=== PATIENT | male | born 1955 | race Caucasian/White ===

== ENCOUNTER 2016-10-01 09:32 | Emergency (ER) | payer BC, OTHER ==
--- NOTE | 2016-10-01 09:48 | ERNOTE ---
Medical Problem HPI - General Time Seen by Provider: 10/01/16 09:48 Source: patient Exam Limitations: no limitations - Immun/Allergies/Home Medications Allergies/Adverse Reactions: Allergies methylprednisolone [From Solu-Medrol] Allergy (Verified 10/01/16 10:04) prednisone Allergy (Verified 10/01/16 10:04) Home Medications: HOME MEDICATIONS Aspirin 325 mg PO DAILY 10/01/16 [Last Taken Unknown] Cephalexin Monohydrate [Keflex] 500 mg PO QID #40 cap 10/01/16 [Last Taken Unknown] Diphenhydramine HCl [Benadryl] 25 mg PO TID PRN #30 capsule 10/01/16 [Last Taken Unknown] Ibuprofen [Motrin] 800 mg PO TID PRN #30 tab 10/01/16 [Last Taken Unknown] Lisinopril [Zestril] 10 mg PO DAILY 10/01/16 [Last Taken Unknown] Simvastatin [Zocor] 40 mg PO DAILY 10/01/16 [Last Taken Unknown] - History of Present History Narrative: here for rash on body. Patient was exposed to poison oak recently he has an area on his right dorsal of the wrist and left volar aspect of wrist where the area is red and inflamed vesicular and has been actively scratched by the patient with several scalp visible. Immediately informs me that he is allergic to prednisone Solu-Medrol and any steroid-type pack. Vision states the allergy symptoms consist of his joints locking up to the point where he cannot move. Review of Systems - Review of Systems Constitutional: Present: no symptoms reported EYE: Present: no symptoms reported ENT: Present: no symptoms reported Respiratory: Present: no symptoms reported Cardiology: Present: no symptoms reported Gastrointestinal/Abdominal: Present: no symptoms reported Genitourinary: Present: no symptoms reported Musculoskeletal: Present: no symptoms reported Skin: Present: no symptoms reported - rash on both wrists Physical Exam - Physical Exam General Appearance: Present: wd/wn, alert, no apparent distress Respiratory: Present: no respiratory distress, normal breath sounds, no accessory muscle use, chest nontender, lungs clear Cardiovascular/Chest: Present: regular rate, rhythm, no murmur, normal peripheral pulses ED Progress - Vital Signs Patient's Vital Signs:: I have reviewed the patient's vital signs. Plan - Plan Plan: This patient clearly has poison oak on his wrists which have been scratched and are further irritated. Furthermore treatment of this patient is slightly challenging as he states that he is allergic to all steroid preps. As such this examiner which she was to treat the patient with high-dose Benadryl Keflex and ibuprofen. Patient is to follow-up with his primary care doctor tomorrow or the day after. Departure - Departure Clinical Impression: Poison oak dermatitis Disposition: Home self-care Condition: Good Instructions: Poison [place] Dermatitis, Poison [place] Dermatitis, [id number] Prescriptions: Cephalexin Monohydrate [Keflex] 500 mg PO QID #40 cap Diphenhydramine HCl [Benadryl] 25 mg PO TID PRN #30 capsule PRN Reason: Itching Ibuprofen [Motrin] 800 mg PO TID PRN #30 tab PRN Reason: Pain
[2016-10-01 09:56] VITALS: BP 157/76
[2016-10-01] MEDS ORDERED: diphenhydrAMINE HCL 50 MG/ML VIAL IM ONE (10:10)
[2016-10-01] MEDS ORDERED: diphenhydrAMINE HCL 50 MG/ML VIAL ONE (10:11)
== END 2016-10-01 10:17 | disposition home or self-care (01) ==
LOC: ER 09:32
DX: L23.7 Allergic contact dermatitis due to plants, except food (principal)

== ENCOUNTER 2018-03-24 07:16 | Observation (INO) ==
[2018-03-24 07:47] LABS: Hematocrit 45.5 % (42.0-52.0); Hemoglobin 14.9 gm/dL (13.5-18.0); Mean Cell Volume 89.9 fl (78-100); Mean Corpuscular Hemoglobin 29.4 pg (27-31); Mean Corpuscular Hgb Conc 32.7 g/dl (32-36); Mean Platelet Volume 9.2 fl (8-11.3); Neutrophil # 3.8 K/mm3 (1.3-6.0); Neutrophil % 66.7 % (42-75.0); Platelet Count 210 K/mm3 (150-450); Red Blood Count 5.06 M/mm3 (4.7-6.0); Red Cell Distribution Width 12.7 % (11.5-14.0); White Blood Count 5.7 K/mm3 (4.0-10.5)
--- NOTE | 2018-03-24 07:52 | ERNOTE ---
<Gibson Campos - Last Filed: 03/24/18 08:03> Chest Pain/Cardiac HPI Date of Service: 03/24/18 Chief Complaint: Chest Pain Time Seen by Provider: 03/24/18 07:47 Source: patient Immunizations: IMMUNIZATION HX Immunizations Up to Date Yes History of Influenza Vaccine No Hx Pneumococcal Vaccination No Allergies/Adverse Reactions: Allergies methylprednisolone [From Solu-Medrol] Allergy (Verified 03/24/18 07:27) prednisone Allergy (Verified 03/24/18 07:27) Home Medications: HOME MEDICATIONS Aspirin 325 mg PO DAILY 10/01/16 [Last Taken Unknown] Ibuprofen [Motrin] 800 mg PO TID PRN #30 tab 10/01/16 [Last Taken Unknown] lisinopril 10 mg tablet 10 mg PO DAILY #90 tab 03/14/18 [Last Taken Unknown] simvastatin 40 mg tablet 40 mg PO HS #90 tab 03/14/18 [Last Taken Unknown] tamsulosin 0.4 mg capsule 0.4 mg PO DAILY #90 cap 03/14/18 [Last Taken Unknown] Narrative: 62-year-old male woke up around 1230 1:00 this morning complaining of pain in his left chest Left parasternal region also a achiness in his left arm and his left neck axis has been occurring on and off for the last several weeks but not like tonight he does relate that while he was working up until 6 years ago he was having frequent stress test and they were all negative the last 1 approximately 6 or 7 years ago. He also states that he has had many broken bones including left parasternal rib area of shoulder problems so he does have significant musculoskeletal component is not painful to palpation cannot reproduce the pain pain right now is a 1 out of 10 Date (Duration): 03/22/18 Time (Timing): 01:30 Timing: resolved prior to arrival Severity/Quality: moderate Location: shoulder, left chest Chest Pain Radiation: arms, neck, shoulders Activities at Onset: rest Nitro Today/Relief: no nitro taken today Aspirin Treatment Today: 325 mg x 1 Associated Symptoms: Present: diaphoresis Prior Chest Pain/Cardiac Workup: Reports: prior chest pain Review of Systems - Review of Systems Constitutional: Present: weight loss, other - Is on the Atkins diet and was lost EYE: Present: no symptoms reported ENT: Present: no symptoms reported Respiratory: Present: no symptoms reported Cardiology: Present: chest pain Gastrointestinal/Abdominal: Present: no symptoms reported Musculoskeletal: Present: neck pain, other - Left rib pain shoulder Skin: Present: no symptoms reported Neurological: Present: no symptoms reported Hematologic/Lymphatic: Present: no symptoms reported Psych: Present: no symptoms reported Medical History (Last Reviewed 03/24/18 @ 07:45 by Fahad Contreras RN) Diabetes mellitus type 2, controlled Onset Date: 11/26/12 Essential hypertension Onset Date: 11/13/13 Hyperlipidemia Onset Date: 11/13/13 Hypertension Onset Date: Unknown Surgical History: Surgical History (Last Reviewed 03/24/18 @ 07:45 by Fahad Contreras RN) H/O colonoscopy with polypectomy Onset Date: 07/25/07 Dr. Acuña Polyp @ 15cm, polyp @ 20cm, & cecum polyp. All benign. Family History: Family History (Last Reviewed 03/24/18 @ 07:45 by Fahad Contreras RN) Aunt Diabetes Father CVA (cerebral vascular accident) Myocardial infarction Alzheimers disease Social History: Preferred Language Luxembourgish Do you have any lutheran or No cultural preference? Smoking Status Former smoker Have you smoked in the past 12 No months Do you dip or chew tobacco No Abuse History No History of abuse Psych History No pertinent hx Alcohol Use none Drug Use none (Last Updated 09/25/17 @ 16:46 by JEFF Delgado) No Social History Section defined Physical Exam - Physical Exam General Appearance: Present: wd/wn, alert, no apparent distress Head Exam: Present: normal inspection Eye Exam: Normal inspection: bilateral, PERRL: bilateral, EOMI: bilateral Ears, Nose, Throat: Present: normal ENT inspection Neck: Present: normal inspection Respiratory: Present: no respiratory distress Cardiovascular/Chest: Present: regular rate, rhythm Peripheral Pulses: N=norm/S=strong/W=weak/B=bound/A=absent: Carotid (R): Normal, Carotid (L): Normal Gastrointestinal/Abdominal: Present: normal bowel sounds, nontender Back Exam: Present: normal inspection, normal range of motion Extremity Exam: Present: normal inspection Neurological Exam: Present: alert, oriented Progress - Vital Signs Vital Signs: Vital Signs 03/24/18 07:22 03/24/18 07:45 Temperature 36.5 C Pulse Rate 64 64 Respiratory Rate 10 L Blood Pressure 142/79 O2 Sat by Pulse Oximetry 97 - Progress/Reassessment Chief Complaint: Chest Pain Progress:: Improved - Transfer of Care Physician Sign Out: Gibson Campos Brief History: Chest pain began about 1230 1:30 AM Receiving Physician: Naomy Gibson Pending Results: Labs, X-ray results Expected Disposition: Discharge Departure Clinical Impression: Chest pain Qualifiers: Chest pain type: precordial pain Qualified Code(s): R07.2 - Precordial pain - Departure Disposition: Still a patient Condition: Stable <Naomy Gibson - Last Filed: 03/24/18 08:52> Chest Pain/Cardiac HPI Source: patient Exam Limitations: no limitations Immunizations: IMMUNIZATION HX Immunizations Up to Date Yes History of Influenza Vaccine No Hx Pneumococcal Vaccination No Medical History (Last Reviewed 03/24/18 @ 08:37 by Naomy Gibson MD) Diabetes mellitus type 2, controlled Onset Date: 11/26/12 Essential hypertension Onset Date: 11/13/13 Hyperlipidemia Onset Date: 11/13/13 Hypertension Onset Date: Unknown Surgical History: Surgical History (Last Reviewed 03/24/18 @ 07:45 by Fahad Contreras RN) H/O colonoscopy with polypectomy Onset Date: 07/25/07 Dr. Acuña Polyp @ 15cm, polyp @ 20cm, & cecum polyp. All benign. Family History: Family History (Last Reviewed 03/24/18 @ 07:45 by Fahad Contreras RN) Aunt Diabetes Father CVA (cerebral vascular accident) Myocardial infarction Alzheimers disease Social History: Preferred Language Luxembourgish Do you have any lutheran or No cultural preference? Smoking Status Former smoker Have you smoked in the past 12 No months Do you dip or chew tobacco No Abuse History No History of abuse Psych History No pertinent hx Alcohol Use none Drug Use none (Last Updated 09/25/17 @ 16:46 by JEFF Delgado) No Social History Section defined Physical Exam - Physical Exam General Appearance: Present: wd/wn, alert, no apparent distress Respiratory: Present: no respiratory distress Neurological Exam: Present: alert, oriented, normal mood/affect Skin Exam: Present: normal color, warm/dry Progress - Results and Orders Patient's Lab Results:: I have reviewed the patient's lab results. - Vital Signs Patient's Vital Signs:: I have reviewed the patient's vital signs. Vital Signs: Vital Signs 03/24/18 07:22 03/24/18 07:45 03/24/18 08:10 Temperature 36.5 C Pulse Rate 64 64 60 Respiratory Rate 10 L 11 L Blood Pressure 142/79 142/77 O2 Sat by Pulse Oximetry 97 98 - X-Ray X-Ray #1 X-Ray: chest - borderline heart size, no acute changes Interpretation: Interp. by me - Progress/Reassessment Progress Note-Subjective: 03/24/18 08:25 discussed test results with patient and family and limitations of test to rule out CAD Patient has had intermittent chest pain every few days for about three weeks, no clear aggravation with activity. He has been able to walk without pain episodes, but did get pain while shoveling snow a few days ago. Last night was the first time the pain woke him up at night (once right after midnight and then again at 03:00, associated with diaphoresis) He denies any pain currently, offered admission as patient has significant risk factors 03/24/18 08:29 discussed with ayo Regan to admit for observation for chest pain
[2018-03-24 07:55] LABS: Prothrombin Time (Patient) 9.6 Seconds (9.0-11.0)
[2018-03-24 07:57] LABS: INR 0.96 INR (0.90-1.10); Partial Thrombolplastin Time 23.1 Seconds (24-32)
[2018-03-24 08:04] LABS: ALT 24 U/L (19-67); AST 15 U/L (0-48); Albumin * 3.9 gm/dl (3.4-5.0); Alkaline Phosphatase * 64 U/L (50-170); Anion Gap 16.2 mmol/L (6.8-13.8); BUN/Creatinine Ratio 26.4 (9.0-21.6); Bilirubin, Total 0.3 mg/dL (0.0-1.1); Blood Urea Nitrogen 24 mg/dL (6-23); Ca. Corrected For Albumin 9.1 mg/dL (8.4-10.2); Calcium * 9.3 mg/dL (7.9-10.9); Carbon Dioxide 23.2 mmol/L (24-32.6); Chloride 104 mmol/L (97-106); Glucose * 164 mg/dL (70-110); Potassium 4.4 mmol/L (3.4-4.6); Sodium 139 mmol/L (132-142); Total Protein 7.6 gm/dL (6.2-8.2)
[2018-03-24 08:09] LABS: Troponin I Less than 0.017 ng/mL (0.00-0.10)
[2018-03-24 08:15] LABS: Urine Appearance Clear (CLEAR); Urine Bilirubin Negative (NEGATIVE); Urine Color Yellow
[2018-03-24 08:16] LABS: Urine Bacteria None Seen; Urine Blood Negative /ul (NEGATIVE); Urine Ketone Negative (NEGATIVE); Urine Nitrite Negative (NEGATIVE); Urine Protein Negative (NEGATIVE); Urine RBC None Seen /hpf (0-5); Urine Specific Gravity 1.015 SP.GR. (1.005-1.030); Urine Urobilinogen Normal (NORMAL); Urine WBC None Seen /hpf (0-5)
--- NOTE | 2018-03-24 11:30 | HP ---
Chief Complaint - Chief Complaint Date of Service: 03/24/18 Time of Service: 13:46 Chief Complaint: Chest pain History of Present Illness: 62-year-old male presented to the ER early this morning after he was awoken from chest pain that radiated into his left shoulder and jaw. Patient states that he was diaphoretic as well. He denied nausea vomiting, denied vision changes, headache, or swelling in his lower extremities. Patient states that a similar episode like this happen to him roughly 3 weeks prior which was concerning and so he came to the ER for evaluation. While in the ER his labs that were drawn were fairly benignCBC within acceptable range, coag panel within an acceptable range, chemistry panel mostly normal aside from elevated glucose at 164 (patient has history of diabetes which he states he is normally well controlled on). First troponin level was negative and the EKG was normal sinus rhythm with no obvious ST depression or elevations. Patient placed in observation for follow-up troponin levels and repeat EKG. currently patient denies chest pain, nausea/vomiting, diaphoresis, or lower extremity swelling. Patient states he is ready to go home. Patient has a history of diabetes, hypertension, hyperlipidemia. He also has significant family history for cardiac disease. Medical History (Last Updated 03/24/18 @ 09:21 by Daisy Alfaro RN) Diabetes mellitus type 2, controlled Onset Date: 11/26/12 Essential hypertension Onset Date: 11/13/13 Hyperlipidemia Onset Date: 11/13/13 Hypertension Onset Date: Unknown Surgical History: Surgical History (Last Updated 03/24/18 @ 09:22 by Daisy Alfaro RN) ADENOIDS REMOVED Tonsillectomy planned H/O colonoscopy with polypectomy Onset Date: 07/25/07 Dr. Acuña Polyp @ 15cm, polyp @ 20cm, & cecum polyp. All benign. Family History: Family History (Last Updated 03/24/18 @ 09:22 by Daisy Alfaro RN) Aunt Diabetes Father Alzheimers disease Myocardial infarction CVA (cerebral vascular accident) Mother Aortic aneurysm Social History: Patient Lives/Resources Home Utilized Preferred Language Romansh Do you have any islam or No cultural preference? Smoking Status Former smoker Have you smoked in the past 12 No months Do you dip or chew tobacco No Abuse History No History of abuse Psych History No pertinent hx Alcohol Use none Drug Use none (Last Updated 07/31/18 @ 16:46 by JEFF Delgado) No Social History Section defined Review Of Systems (GEN) - Review of Systems Generalized/Overall Review: Present: No Symptoms Reported EENTM: Present: No Symptoms Reported Respiratory: Absent: Cough, Shortness of Breath Cardiac: Present: Chest Pain - Resolved. Absent: Edema, Palpitations Abdominal: Absent: Nausea, Vomiting Genitourinary: Present: No Symptoms Reported Musculoskeletal: Present: Muscle Pain - Left chest wall, left paraspinal muscle pain Neurological: Present: No Symptoms Reported Skin: Present: No Symptoms Reported Endocrine: Absent: Increased Thirst Immunizations: IMMUNIZATION HX Immunizations Up to Date Yes History of Influenza Vaccine No Hx Pneumococcal Vaccination No Allergies/Adverse Reactions: Allergies Allergy/AdvReac Type Severity Reaction Status Date / Time methylprednisolone Allergy Verified 03/24/18 09:22 [From Solu-Medrol] prednisone Allergy Verified 03/24/18 09:22 Home Medications: HOME MEDICATIONS Aspirin 325 mg PO DAILY 10/01/16 [Last Taken Unknown] lisinopril 10 mg tablet 10 mg PO DAILY #90 tab 03/14/18 [Last Taken Unknown] tamsulosin 0.4 mg capsule 0.4 mg PO DAILY #90 cap 03/14/18 [Last Taken Unknown] Multivitamin [Multivitamins] 1 ea PO DAILY 03/24/18 [Last Taken Unknown] Simvastatin [Zocor] 40 mg PO DAILY 03/24/18 [Last Taken Unknown] Exam - Exam Vital Signs: Vital Signs - Last Taken Temp 36.7 C 03/24/18 09:25 Pulse 62 03/24/18 09:25 Resp 20 03/24/18 09:25 BP 132/73 03/24/18 09:25 Pulse Ox 94 03/24/18 09:25 Constitutional: Present: Alert, Oriented x3, Cooperative, Obese Eye Exam: bilateral eye: normal inspection, EOMI Neck: Present: full range of motion. Absent: non-tender - Mild left-sided paraspinal tenderness with palpation, stiff neck, tender midline Respiratory: Present: lungs clear, normal breath sounds. Absent: chest non- tender - Mild left upper chest wall tenderness with palpation Cardiovascular/Chest: Present: normal peripheral pulses, regular rate, rhythm Peripheral Pulses: dorsalis-pedis (R): 2+, dorsalis-pedis (L): 2+ Abdomen: Present: Normal bowel sounds, soft, nontender /Rectal: Present: Exam deferred Extremity: Absent: lower extremity edema Skin Exam: Present: normal color, warm/dry Appearance: Present: appropriate appearance, appropriate insight Eye contact: Present: cooperative, good eye contact Thoughts: Present: normal thought pattern, normal mood /affect Diagnostic Studies: Abnormal Lab Results 03/24/18 03/24/18 03/24/18 Range/Units 07:37 07:37 07:37 Immature Gran % (Auto) 0.70 H (0.001-0.429) % Immature Gran # (Auto) 0.04 H (0.000-0.0310) K/mm3 Lymphocytes # 1.23 L (1.5-3.5) k/mm3 PTT ([place]) 23.1 L (24-32) Seconds Carbon Dioxide 23.2 L (24-32.6) mmol/L Anion Gap 16.2 H (6.8-13.8) mmol/L BUN 24 H (6-23) mg/dL BUN/Creatinine Ratio 26.4 H (9.0-21.6) Random Glucose 164 H (70-110) mg/dL Laboratory Results WBC 5.7 K/mm3 (4.0-10.5) 03/24/18 07:37 RBC 5.06 M/mm3 (4.7-6.0) 03/24/18 07:37 Hgb 14.9 gm/dL (13.5-18.0) 03/24/18 07:37 Hct 45.5 % (42.0-52.0) 03/24/18 07:37 MCV 89.9 fl (78-100) 03/24/18 07:37 MCH 29.4 pg (27-31) 03/24/18 07:37 MCHC 32.7 g/dl (32-36) 03/24/18 07:37 RDW 12.7 % (11.5-14.0) 03/24/18 07:37 Plt Count 210 K/mm3 (150-450) 03/24/18 07:37 MPV 9.2 fl (8-11.3) 03/24/18 07:37 Immature Gran % (Auto) 0.70 % (0.001-0.429) H 03/24/18 07:37 Immature Gran # (Auto) 0.04 K/mm3 (0.000-0.0310) H 03/24/18 07:37 Neutrophils % 66.7 % (42-75.0) 03/24/18 07:37 Lymphocytes % 21.7 % (20-51) 03/24/18 07:37 Monocytes % 8.8 % (0.0-9) 03/24/18 07:37 Eosinophils % 1.6 % (0.0-3.0) 03/24/18 07:37 Basophils % 0.5 % (0.0-1.0) 03/24/18 07:37 Nucleated RBC % 0.0 k/mm3 (0-1) 03/24/18 07:37 Neutrophils # 3.8 K/mm3 (1.3-6.0) 03/24/18 07:37 Lymphocytes # 1.23 k/mm3 (1.5-3.5) L 03/24/18 07:37 Monocytes # 0.5 k/mm3 (0.0-1.0) 03/24/18 07:37 Eosinophils # 0.1 k/mm3 (0.0-0.7) 03/24/18 07:37 Absolute Basophils 0.0 k/mm3 (0.0-0.1) 03/24/18 07:37 PT 9.6 Seconds (9.0-11.0) 03/24/18 07:37 INR (Anticoag Therapy) 0.96 INR (0.90-1.10) 03/24/18 07:37 PTT ([place]) 23.1 Seconds (24-32) L 03/24/18 07:37 Sodium 139 mmol/L (132-142) 03/24/18 07:37 Plasma Sodium 140 mmol/L (130-142) 03/24/18 07:37 Potassium 4.4 mmol/L (3.4-4.6) 03/24/18 07:37 Chloride 104 mmol/L (97-106) 03/24/18 07:37 Carbon Dioxide 23.2 mmol/L (24-32.6) L 03/24/18 07:37 Anion Gap 16.2 mmol/L (6.8-13.8) H 03/24/18 07:37 BUN 24 mg/dL (6-23) H 03/24/18 07:37 Creatinine 0.91 mg/dL (0.4-1.4) 03/24/18 07:37 Est GFR (Non-Af Amer) 89 mL/min (60-130) 03/24/18 07:37 BUN/Creatinine Ratio 26.4 (9.0-21.6) H 03/24/18 07:37 Random Glucose 164 mg/dL (70-110) H 03/24/18 07:37 Calcium 9.3 mg/dL (7.9-10.9) 03/24/18 07:37 Calcium Adj for Albumin 9.1 mg/dL (8.4-10.2) 03/24/18 07:37 Total Bilirubin 0.3 mg/dL (0.0-1.1) 03/24/18 07:37 AST 15 U/L (0-48) 03/24/18 07:37 ALT 24 U/L (19-67) 03/24/18 07:37 Alkaline Phosphatase 64 U/L (50-170) 03/24/18 07:37 Troponin I Less than 0.017 ng/mL (0.00-0.10) 03/24/18 07:37 Total Protein 7.6 gm/dL (6.2-8.2) 03/24/18 07:37 Albumin 3.9 gm/dl (3.4-5.0) 03/24/18 07:37 Urine Color Yellow 03/24/18 07:45 Urine Appearance Clear (CLEAR) 03/24/18 07:45 Urine pH 6.0 pH (5.0-7.0) 03/24/18 07:45 Ur Specific [place] 1.015 SP.GR. (1.005-1.030) 03/24/18 07:45 Urine Protein Negative mg/dL (NEGATIVE) 03/24/18 07:45 Urine Glucose (UA) Negative mg/dL (NEGATIVE) 03/24/18 07:45 Urine Ketones Negative mg/dL (NEGATIVE) 03/24/18 07:45 Urine Blood Negative /ul (NEGATIVE) 03/24/18 07:45 Urine Nitrate Negative (NEGATIVE) 03/24/18 07:45 Urine Bilirubin Negative mg/dl (NEGATIVE) 03/24/18 07:45 Urine Urobilinogen Normal EU/dl (NORMAL) 03/24/18 07:45 Ur Leukocyte Esterase Negative /ul (NEGATIVE) 03/24/18 07:45 Urine RBC None seen /hpf (0-5) 03/24/18 07:45 Urine WBC None seen /hpf (0-5) 03/24/18 07:45 Ur Epithelial Cells None seen /hpf (0-5) 03/24/18 07:45 Urine Bacteria None seen (NONE) 03/24/18 07:45 Urine Culture Comments No culture indicated 03/24/18 07:45 Assessment/Plan - Narrative Narrative: Since being placed in observation, patient has been asymptomatic and feeling well. Asked if he could go home when I had first into the room. His vital signs been stable and has been afebrile. Discussed his blood work including cardiac workup which has been negative for acute coronary syndrome and recommended he stay and have one more set of cardiac enzymes drawn as well as one more repeat EKG to make sure were not missing anything. Patient stated understanding and was in agreement with the treatment plan. Other labs unremarkable. Patient will likely be discharged later this evening as long as his blood work does not come back showing anything abnormal and patient stays asymptomatic. - Assessment/Plan (1) Chest pain Problem: Acute Qualifiers: Chest pain type: precordial pain Qualified Code(s): R07.2 - Precordial pain (2) Hypertension Problem: Acute (3) Hyperlipidemia Problem: Acute (4) Type 2 diabetes mellitus Problem: Acute
--- NOTE | 2018-03-24 15:36 | DS ---
(1) Chest pain Problem: Resolved Qualifiers: Chest pain type: precordial pain Qualified Code(s): R07.2 - Precordial pain (2) Hypertension Problem: Acute (3) Hyperlipidemia Problem: Acute (4) Type 2 diabetes mellitus Problem: Acute Description of Stay: 62-year-old male presented to the ER early this morning after he was awoken from chest pain that radiated into his left shoulder and jaw. Patient states that he was diaphoretic as well. He denied nausea vomiting, denied vision changes, headache, or swelling in his lower extremities. Patient states that a similar episode like this happen to him roughly 3 weeks prior which was concerning and so he came to the ER for evaluation. While in the ER his labs that were drawn were fairly benignCBC within acceptable range, coag panel within an acceptable range, chemistry panel mostly normal aside from elevated glucose at 164 (patient has history of diabetes which he states he is normally well controlled on). Both sets of troponins were negative and the EKGs both should NSR with no obvious ST depression or elevations. Patient was discharged home in stable condition. Advised to follow-up with his PCP within the next 3-5 days. Patient likely will need outpatient stress test as his pain did sound like it was cardiac in nature. Patient states understanding to this and is in agreement with treatment plan. No changes made to his medication list at this time. Procedures Performed: none Results and Findings: Lab Pending Results 03/24/18 07:37: WBC 5.7, RBC 5.06, Hgb 14.9, Hct 45.5, MCV 89.9, MCH 29.4, MCHC 32.7, RDW 12.7, Plt Count 210, MPV 9.2, Immature Gran % (Auto) 0.70 H, Immature Gran # (Auto) 0.04 H, Neutrophils % 66.7, Lymphocytes % 21.7, Monocytes % 8.8, Eosinophils % 1.6, Basophils % 0.5, Nucleated RBC % 0.0, Neutrophils # 3.8, Lymphocytes # 1.23 L, Monocytes # 0.5, Eosinophils # 0.1, Absolute Basophils 0.0 03/24/18 07:37: PT 9.6, INR (Anticoag Therapy) 0.96, PTT ([place]) 23.1 L 03/24/18 07:37: Sodium 139, Plasma Sodium 140, Potassium 4.4, Chloride 104, Carbon Dioxide 23.2 L, Anion Gap 16.2 H, BUN 24 H, Creatinine 0.91, Est GFR (Non-Af Amer) 89, BUN/Creatinine Ratio 26.4 H, Random Glucose 164 H, Calcium 9 .3, Calcium Adj for Albumin 9.1, Total Bilirubin 0.3, AST 15, ALT 24, Alkaline Phosphatase 64, Troponin I Less than 0.017, Total Protein 7.6, Albumin 3.9 03/24/18 07:45: Urine Color Yellow, Urine Appearance Clear, Urine pH 6.0, Ur Specific [place] 1.015, Urine Protein Negative, Urine Glucose (UA) Negative, Urine Ketones Negative, Urine Blood Negative, Urine Nitrate Negative, Urine Bilirubin Negative, Urine Urobilinogen Normal, Ur Leukocyte Esterase Negative, Urine RBC None seen, Urine WBC None seen, Ur Epithelial Cells None seen, Urine Bacteria None seen, Urine Culture Comments No culture indicated 03/24/18 14:37: Troponin I Less than 0.017 Discharge Location: Home Disposition: Home self-care Condition: Stable Discharge Activity: Activity as tolerated Discharge Diet: Consistent carbs Referrals: Ld Nuñez DO [Primary Care Provider] - (3-5 days) Complete Home Medications List: Complete Home Medication List: Aspirin 325 mg PO DAILY 10/01/16 lisinopril 10 mg tablet 10 mg PO DAILY #90 tab 03/14/18 tamsulosin 0.4 mg capsule 0.4 mg PO DAILY #90 cap 03/14/18 Multivitamin [Multivitamins] 1 ea PO DAILY 03/24/18 Simvastatin [Zocor] 40 mg PO DAILY 03/24/18
[2018-03-24 16:03] VITALS: BP 131/68
[2018-03-24] MEDS ORDERED: TAMSULOSIN HCL 0.4 MG CAP.SR.24H PO SCH (19:00)
[2018-03-24] MEDS ORDERED: SIMVASTATIN 40 MG TABLET PO SCH (21:00)
[2018-03-25] MEDS ORDERED: ASPIRIN 325 MG TABLET.DR PO SCH (09:00)
[2018-03-25] MEDS ORDERED: MULTIVITAMINS 1 CAP CAPSULE PO SCH (09:00)
[2018-03-25] MEDS ORDERED: LISINOPRIL 10 MG TABLET PO SCH (09:00)
== END 2018-03-24 16:20 | disposition home or self-care (01) ==
LOC: MS 07:16 → ER 07:16 → MS 09:05
PROVIDERS: ADMIT Family Medicine; ATTEND Family Medicine
CPT/HCPCS: 36415; 71020; 71046; 80053; 81001; 84484; 85025; 85610; 85730; 93005; 99285; G0378